=== PATIENT | female | born 1995 | race Caucasian/White ===

== ENCOUNTER 2022-09-25 19:25 | Inpatient (IN) | payer SELFPAY ==
[2022-09-25] MEDS ORDERED: Carboprost 250 MCG/ML AMP IM PRN (19:51)
[2022-09-25] MEDS ORDERED: Diphenoxylate HCl/Atropine Tablet PO PRN (19:51)
[2022-09-25] MEDS ORDERED: Tranexamic Acid 1,000 MG/10 ML VIAL IVP PRN (19:51)
[2022-09-25] MEDS ORDERED: Acetaminophen 500 MG TAB PO PRN (19:51)
[2022-09-25] MEDS ORDERED: Ondansetron PF 4 MG/2 ML Vial IVP PRN (19:51)
[2022-09-25] MEDS ORDERED: Misoprostol 200 MCG TAB PR PRN (19:51)
[2022-09-25] MEDS ORDERED: hydrALAZINE 20 MG/ML VIAL SLOW IVP PRN ×2 (19:51→19:54)
[2022-09-25] MEDS ORDERED: Methylergonovine 0.2 MG/ML VIAL IM PRN (19:51)
[2022-09-25] MEDS ORDERED: Boostrix 0.5 ML (Tdap) VIAL (>/=7 yrs of age) IM ONE (19:54)
[2022-09-25 20:12] VITALS: BMI 34.4
[2022-09-25] MEDS ORDERED: Docusate 100 MG CAP PO SCH (21:00)
[2022-09-26] MEDS ORDERED: Ferrous Sulfate 325 MG TAB PO SCH (08:00)
== END 2022-09-25 21:35 | disposition left against medical advice (07) | DRG 776 ==
LOC: CSHLD 19:25
PROVIDERS: ADMIT Obstetrics & Gynecology; ATTEND Obstetrics & Gynecology
DX: O72.2 Delayed and secondary postpartum hemorrhage (principal); Z88.0 Allergy status to penicillin; D64.9 Anemia, unspecified; O99.03 Anemia complicating the puerperium